=== PATIENT | male | born 1990 | race Hispanic/Latino ===

== ENCOUNTER 2018-05-16 19:11 | Emergency (ER) | payer SELFPAY ==
[2018-05-16] MEDS ORDERED: ONDANSETRON 4 MG/2 ML VIAL ONE (19:22)
[2018-05-16] MEDS ORDERED: FAMOTIDINE 20 MG/2 ML VIAL IV ONE (19:31)
[2018-05-16 19:46] LABS: Absolute Lymphocytes (CBC) 2.9 K/uL (0.7-4.9); Absolute Monocytes 0.5 K/uL (0.1-1.3); Absolute Neutrophil 7.5 K/uL (1.8-8.0); Basophils % 0.4 % (0-1.3); Eosinophils % 0.4 % (0-4.4); Hematocrit 41.4 % (39.6-49.0); Lymphocytes % 26.5 % (15.3-44.8); MCH 28.8 pg (27.0-35.0); MCV 83.4 fL (80-100); Monocytes % 4.9 % (3.3-12.3); RBC Red Blood Cell Count 4.96 M/uL (4.33-5.43)
[2018-05-16 20:03] LABS: ALT/SGPT 65 U/L (12-78); AST/SGOT 28 U/L (15-37); Alkaline Phosphatase 86 U/L (45-117); BUN Blood Urea Nitrogen 18 mg/dL (7-18); Bicarbonate 25 mmol/L (21-32); Bilirubin Direct < 0.1 mg/dL (0-0.2); Bilirubin Total 0.3 mg/dL (0.2-1.0); Creatine Phosphokinase 190 U/L (39-308); Glucose Level 128 mg/dL (74-106); Lipase 102 U/L (73-393); Potassium 3.8 mmol/L (3.5-5.1); Protein, Total 6.9 g/dL (6.4-8.2); Sodium Level 145 mmol/L (136-145)
--- NOTE | 2018-05-16 20:28 | RAD REPORT ---
EXAM DESCRIPTION: CT - Head Brain Wo Cont - 05/16/2018 8:23 pm CLINICAL HISTORY: nausea/vomiting;Dizziness Syncope, head injury COMPARISON: No comparisons TECHNIQUE: All CT scans are performed using dose optimization technique as appropriate and may inclu de automated exposure control or mA/KV adjustment according to patient size. FINDINGS: No intracranial hemorrhage, hydrocephalus or extra-axial fluid collection.No areas of brai n edema or evidence of midline shift. The paranasal sinuses and mastoids are clear. The calvarium is intact. IMPRESSION: No acute intracranial abnormality.
[2018-05-16] MEDS ORDERED: MECLIZINE HCL 12.5 MG TAB ONE (20:50)
--- NOTE | 2018-05-16 21:47 | ER ---
Nurse's Notes [facility] Name: Nabil Smith Age: 27 yrs Sex: Male : 1990 Arrival Date: 05/16/2018 Time: 19:13 Bed 5 Private MD: Diagnosis: Dizziness and giddiness;Nausea and vomiting Presentation: 05/16 19:14 Presenting complaint: Presenting complaint: EMS states: Pt was at work and began to tl2 feel dizzy and nauseous. Pt stated he went to his truck and when paramedics got there he had a syncopal episode that lasted a few seconds. Pt is AOx3 in triage but is lethargic, continues to c/o nausea and dizziness. 19:15 Transition of care: patient was not received from another setting of care. Onset of tl2 symptoms was May 16, 2018 at 15:00. Risk Assessment: Do you want to hurt yourself or someone else? Patient reports no desire to harm self or others. Initial Sepsis Screen: Does the patient meet any 2 criteria? No. Patient's initial sepsis screen is negative. Does the patient have a suspected source of infection? No. Patient's initial sepsis screen is negative. Care prior to arrival: Medication(s) given: zofran 4 mg, IV initiated. 20 GA, in the left antecubital area, Glucose check: 101. 19:15 Method Of Arrival: EMS: [facility] tl2 19:15 Acuity: CORRIE 3 tl2 Triage Assessment: 19:18 General: Appears in no apparent distress. uncomfortable, Behavior is calm, cooperative, tl2 appropriate for age, listless. Pain: Denies pain. Neuro: Level of Consciousness is awake, obeys commands, lethargic, Oriented to person, place, time, situation, Reports dizziness. Cardiovascular: Denies chest pain. Respiratory: Airway is patent Respiratory effort is even, unlabored, Respiratory pattern is regular, symmetrical. GI: Pt is actively vomiting Reports nausea, vomiting. : No signs and/or symptoms were reported regarding the genitourinary system. Derm: Skin is pale. Historical: - Allergies: 19:18 No Known Allergies; tl2 - Home Meds: 19:18 None [Active]; tl2 - PMHx: 19:18 None; tl2 - PSHx: 19:18 None; tl2 - Immunization history:: Adult Immunizations up to date. - Social history:: Smoking status: Patient/guardian denies using tobacco. - Ebola Screening: : No symptoms or risks identified at this time. Screenin:21 Abuse screen: Denies threats or abuse. Nutritional screening: No deficits noted. tl2 Tuberculosis screening: No symptoms or risk factors identified. Fall Risk IV access (20 points). Assessment: 19:21 General: see triage assessment. tl2 21:13 Reassessment: Patient appears in no apparent distress at this time. Patient and/or tl2 family updated on plan of care and expected duration. Pain level reassessed. Patient is alert, oriented x 3, equal unlabored respirations, skin warm/dry/pink. Patient states feeling better. 21:47 Reassessment: Patient appears in no apparent distress at this time. Patient and/or tl2 family updated on plan of care and expected duration. Pain level reassessed. Patient is alert, oriented x 3, equal unlabored respirations, skin warm/dry/pink. Pt was able to ambulate and stated he only felt dizzy if he moved his head to the side. Reports feeling much better. PA notified, Patient states feeling better. 22:30 Reassessment: Patient appears in no apparent distress at this time. Patient and/or tl2 family updated on plan of care and expected duration. Pain level reassessed. Patient is alert, oriented x 3, equal unlabored respirations, skin warm/dry/pink. pt verbalized understanding of discharge instructions, need for follow up and prescription usage Patient states feeling better. Vital Signs: 19:18 BP 135 / 96; Pulse 92; Resp 20; Temp 98; Pulse Ox 95% on R/A; Weight 86.18 kg; Height 5 tl2 ft. 5 in. (165.10 cm); Pain 0/10; 20:48 BP 126 / 72; Pulse 77; Resp 18; Pulse Ox 98% on R/A; tl2 22:30 BP 123 / 65; Pulse 78; Resp 18; Pulse Ox 100% on R/A; tl2 19:18 Body Mass Index 31.62 (86.18 kg, 165.10 cm) tl2 ED Course: 19:13 Patient arrived in ED. tl2 19:15 Roney Rogers PA is PHCP. cp 19:15 Nic Xie MD is Attending Physician. cp 19:15 Cassandra Godwin, RN is Primary Nurse. tl2 19:18 Triage completed. tl2 19:18 Arm band placed on right wrist. tl2 19:21 Patient has correct armband on for positive identification. Placed in gown. Bed in low tl2 position. Call light in reach. Side rails up X2. 19:21 Maintain EMS IV. Dressing intact. Good blood return noted. Site clean \T\ dry. Gauge \T\ tl 2 site: 20 g L AC. 20:[address] 20:23 CT completed. Patient tolerated procedure well. Patient moved back from CT. me 20:23 CT Head Brain wo Cont In Process Unspecified. EDMS 22:30 No provider procedures requiring assistance completed. IV discontinued, intact, tl2 bleeding controlled, No redness/swelling at site. Pressure dressing applied. Administered Medications: 19:21 Drug: Zofran 4 mg Route: IVP; Site: left antecubital; lp1 20:00 Follow up: Response: No adverse reaction; Nausea is decreased tl2 19:34 Drug: Pepcid 20 mg Route: IVP; Site: left antecubital; tl2 22:32 Follow up: Response: No adverse reaction; Marked relief of symptoms tl2 20:45 Drug: Meclizine 25 mg Route: PO; aa1 21:30 Follow up: Response: No adverse reaction; Marked relief of symptoms tl2 Outcome: 21:45 Discharge ordered by . cp 22:30 Discharged to home ambulatory, with friend. tl2 22:30 Condition: stable 22:30 Discharge instructions given to patient, Instructed on discharge instructions, follow up and referral plans. medication usage, Demonstrated understanding of instructions, follow-up care, medications, Prescriptions given X 2. 22:35 Patient left the ED. tl2 Signatures: Dispatcher [employer] EDMS Preethi Briseno RN RN aa1 Salvador Lynn Lauren Dawkins RN RN lp1 Roney Rogers PA PA cp Cassandra Godwin RN RN tl2 Goran Mike Corrections: (The following items were deleted from the chart) 19:18 19:14 Presenting complaint: tl2 tl2
--- NOTE | 2018-05-16 21:47 | EDPHYS ---
Physician Documentation [facility] Name: Nabil Smith Age: 27 yrs Sex: Male : 1990 Arrival Date: 05/16/2018 Time: 19:13 Bed 5 Private MD: ED Physician Nic Xie HPI: 05/16 19:20 This 27 yrs old Male presents to ER via EMS with complaints of Dizziness, cp Nausea/Vomiting. 19:20 The patient presents with dizziness. Onset: The symptoms/episode began/occurred today. cp Associated signs and symptoms: Pertinent positives: nausea, syncope, vomiting. 19:20 Severity of symptoms: in the emergency department the symptoms have improved mildly. cp Patient's baseline: Neuro: alert and fully oriented, Motor: no deficits, Ambulation: walks without assistance, Speech: normal. Historical: - Allergies: 19:18 No Known Allergies; tl2 - Home Meds: 19:18 None [Active]; tl2 - PMHx: 19:18 None; tl2 - PSHx: 19:18 None; tl2 - Immunization history:: Adult Immunizations up to date. - Social history:: Smoking status: Patient/guardian denies using tobacco. - Ebola Screening: : No symptoms or risks identified at this time. ROS: 19:25 Constitutional: Negative for body aches, chills, fever, poor PO intake. cp 19:25 Eyes: Negative for injury, pain, redness, and discharge. cp 19:25 ENT: Negative for drainage from ear(s), ear pain, sore throat, difficulty swallowing, difficulty handling secretions. 19:25 Neck: Negative for pain with movement, pain at rest, stiffness. 19:25 Cardiovascular: Negative for chest pain, edema, palpitations. 19:25 Respiratory: Negative for cough, shortness of breath, wheezing. 19:25 Abdomen/GI: Positive for nausea and vomiting, Negative for constipation, hematemesis, black/tarry stool, rectal bleeding. 19:25 Skin: Negative for cellulitis, rash. 19:25 Neuro: Positive for dizziness, syncope, Negative for altered mental status. 19:25 All other systems are negative. Exam: 19:30 Constitutional: The patient appears in no acute distress, alert, awake, cp non-diaphoretic, non-toxic, well developed, well nourished. 19:30 Head/Face: Normocephalic, atraumatic. Eyes: Pupils equal round and reactive to light, cp extra-ocular motions intact. Lids and lashes normal. Conjunctiva and sclera are non-icteric and not injected. Cornea within normal limits. Periorbital areas with no swelling, redness, or edema. ENT: Nares patent. No nasal discharge, no septal abnormalities noted. Tympanic membranes are normal and external auditory canals are clear. Oropharynx with no redness, swelling, or masses, exudates, or evidence of obstruction, uvula midline. Mucous membranes moist. Chest/axilla: Normal chest wall appearance and motion. Nontender with no deformity. No lesions are appreciated. Cardiovascular: Regular rate and rhythm with a normal S1 and S2. No gallops, murmurs, or rubs. Normal PMI, no JVD. No pulse deficits. Respiratory: Lungs have equal breath sounds bilaterally, clear to auscultation and percussion. No rales, rhonchi or wheezes noted. No increased work of breathing, no retractions or nasal flaring. Abdomen/GI: Soft, non-tender, with normal bowel sounds. No distension or tympany. No guarding or rebound. No evidence of tenderness throughout. Skin: Warm, dry with normal turgor. Normal color with no rashes, no lesions, and no evidence of cellulitis. Neuro: Awake and alert, GCS 15, oriented to person, place, time, and situation. Cranial nerves II-XII grossly intact. Motor strength 5/5 in all extremities. Sensory grossly intact. Cerebellar exam normal. Normal gait. 19:35 ECG was reviewed by the Attending Physician. cp Vital Signs: 19:18 BP 135 / 96; Pulse 92; Resp 20; Temp 98; Pulse Ox 95% on R/A; Weight 86.18 kg; Height 5 tl2 ft. 5 in. (165.10 cm); Pain 0/10; 20:48 BP 126 / 72; Pulse 77; Resp 18; Pulse Ox 98% on R/A; tl2 22:30 BP 123 / 65; Pulse 78; Resp 18; Pulse Ox 100% on R/A; tl2 19:18 Body Mass Index 31.62 (86.18 kg, 165.10 cm) tl2 MDM: 19:19 Patient medically screened. cp 19:30 Differential diagnosis: cardiac arrhythmia, CVA, generalized weakness, hypovolemia, cp idiopathic dizziness, TIA, vertigo. 21:45 Data reviewed: vital signs, nurses notes, lab test result(s), EKG, radiologic studies, cp CT scan. 21:45 Test interpretation: by ED physician or midlevel provider: ECG. Counseling: I had a cp detailed discussion with the patient and/or guardian regarding: the historical points, exam findings, and any diagnostic results supporting the discharge/admit diagnosis, lab results, radiology results, to return to the emergency department if symptoms worsen or persist or if there are any questions or concerns that arise at home. Response to treatment: the patient's symptoms have markedly improved after treatment, VSS. Dizziness and nausea markedly improved. Vomiting resolved, and as a result, I will discharge patient. 05/16 19:17 Order name: Basic Metabolic Panel; Complete Time: 20:09 cp 05/16 20:09 Interpretation: Normal except: CL 112; GLUC 128; GFR 82; CA 8.3. cp 05/16 19:17 Order name: CBC with Diff; Complete Time: 19:56 cp 05/16 19:56 Interpretation: Normal except: WBC 11.1. cp 05/16 19:17 Order name: Creatinine for Radiology; Complete Time: 20:09 cp 05/16 19:17 Order name: Hepatic Function; Complete Time: 20:09 cp 05/16 19:17 Order name: Lipase; Complete Time: 20:09 cp 05/16 19:17 Order name: CK; Complete Time: 20:09 cp 05/16 19:17 Order name: IV Saline Lock; Complete Time: 19:21 cp 05/16 19:17 Order name: Labs collected and sent; Complete Time: 19:34 cp 05/16 19:17 Order name: EKG; Complete Time: 19:18 cp 05/16 19:17 Order name: Magnesium; Complete Time: 20:09 cp 05/16 19:56 Order name: CT Head Brain wo Cont; Complete Time: 20:35 cp 05/16 19:17 Order name: EKG - Nurse/Tech; Complete Time: 19:34 cp 05/16 20:36 Order name: PO challenge; Complete Time: 20:45 cp EC:35 Rate is 86 beats/min. Rhythm is regular. CA interval is normal. QRS interval is cp prolonged at 116 msec. QT interval is normal. Interpreted by me. Reviewed by me. Administered Medications: 19:21 Drug: Zofran 4 mg Route: IVP; Site: left antecubital; lp1 20:00 Follow up: Response: No adverse reaction; Nausea is decreased tl2 19:34 Drug: Pepcid 20 mg Route: IVP; Site: left antecubital; tl2 22:32 Follow up: Response: No adverse reaction; Marked relief of symptoms tl2 20:45 Drug: Meclizine 25 mg Route: PO; aa1 21:30 Follow up: Response: No adverse reaction; Marked relief of symptoms tl2 Disposition: 05/16/18 21:45 Discharged to Home. Impression: Dizziness and giddiness, Nausea and vomiting. - Condition is Stable. - Discharge Instructions: Dizziness, Nausea and Vomiting, Adult. - Prescriptions for Meclizine 25 mg Oral Tablet - take 1 tablet by ORAL route every 8 hours As needed; 30 tablet. Zofran 4 mg Oral Tablet - take 1 tablet by ORAL route every 12 hours As needed; 20 tablet. - Medication Reconciliation Form, Thank You Letter, Antibiotic Education, Prescription Opioid Use form. - Follow up: Private Physician; When: 2 - 3 days; Reason: Recheck today's complaints. - Problem is new. - Symptoms have improved. Addendum: 05/20/2018 00:57 Co-signature as Attending Physician, Nic Xie MD. g s Signatures: Dispatcher [employer] EDMS Preethi Briseno RN RN aa1 Lauren Dawkins RN RN lp1 Roney Rogers PA PA cp Cassandra Godwin RN RN tl2 Nic Xie MD MD Corrections: (The following items were deleted from the chart) 05/16 20:09 20:09 Normal except: CL 112; GLUC 128; GFR 82. cp cp 22:35 21:45 05/16/2018 21:45 Discharged to Home. Impression: Dizziness and giddiness; Nausea tl2 and vomiting. Condition is Stable. Forms are Medication Reconciliation Form, Thank You Letter, Antibiotic Education, Prescription Opioid Use. Follow up: Private Physician; When: 2 - 3 days; Reason: Recheck today's complaints. Problem is new. Symptoms have improved. cp
--- NOTE | 2018-05-17 07:54 | EKG ---
Test Date: 2018-05-16 Test Time: 19:28:25 Head Stock Operator: JESSICA MEASUREMENT RESULTS: Intervals: Rate: 86 MA: 160 QRSD: 116 QT: 368 QTc: 440 [place]: P: 12 MA: 160 QRS: -5 T: 24 INTERPRETIVE STATEMENTS: Normal sinus rhythm Incomplete right bundle branch block Otherwise normal ECG No previous ECG available for comparison Electronically Signed On 05-17-18 07:53:57 CDT by Ranjan Bowman
== END 2018-05-16 22:35 | disposition home or self-care (01) ==
LOC: ER 19:11
DX: R11.2 Nausea with vomiting, unspecified (principal)
CPT/HCPCS: 36415; 70450; 80048; 80076; 82550; 83690; 83735; 85025; 93005; 96374; 96375; 99284; J2405